=== PATIENT | male | born 1950 | race Caucasian/White ===

== ENCOUNTER 2024-12-15 14:15 | Inpatient (IN) | payer BC, MEDICARE ==
[~2024-12-15] VITALS: Ht 170.2 cm; Wt 75.7 kg
[2024-12-15] MEDS ORDERED: PANTOPRAZOLE 40 MG VIAL ONE (15:55)
[2024-12-15] MEDS ORDERED: ONDANSETRON HCL/PF 4 MG/2 ML VIAL ONE (15:55)
[2024-12-15] MEDS ORDERED: MORPHINE SULFATE INJ 4 MG/ML DISP.SYRIN ONE (15:55)
[2024-12-15] MEDS: MORPHINE SULFATE INJ 2 MG/ML DISP.SYRIN IV ONE (16:00)
[2024-12-15] MEDS: ONDANSETRON HCL/PF 4 MG/2 ML VIAL IVP ONE (16:00)
[2024-12-15] MEDS: PANTOPRAZOLE 40 MG VIAL IV ONE (16:00)
[2024-12-15] MEDS: IV NS 0.9% 1,000 ML BAG IV ONE (16:00)
[2024-12-15 16:03] LABS: PLATELET COUNT (AUTO) 281 K/uL (150-450); RED BLOOD CELL COUNT(AUTO) 5.25 MIL/uL (4.5-6.0); RED CELL DISTRIBUTION WIDTH 13.2 % (11.5-15.0); WHITE BLOOD COUNT (AUTO) 9.1 K/uL (4.3-11.0)
[2024-12-15 16:11] LABS: CALCIUM, SERUM 9.9 mg/dL (8.5-10.1); CREATININE 0.7 mg/dL (0.6-1.3); SODIUM SERUM 139 mmol/L (136-145); UREA NITROGEN, BLOOD 17 mg/dL (7-18)
[2024-12-15 16:15] LABS: INR 0.95 (0.91-1.10)
[2024-12-15 16:16] LABS: ASPARTATE AMINOTRANSFERASE 20 U/L (15-37); TOTAL PROTEIN, SERUM 7.9 g/dL (6.4-8.2)
[2024-12-15] MEDS ORDERED: IOHEXOL-300 100 ML VIAL IV ONE (16:56)
[2024-12-15] MEDS ORDERED: IV NS 0.9% 250 ML IV ONE (16:56)
[2024-12-15 17:13] LABS: APPEARANCE,URINE CLOUDY (CLEAR); BLOOD, URINE Negative Ery/uL (NEGATIVE); LEUKOCYTE ESTERASE ,URINE Negative (NEGATIVE); NITRITE, URINE NEGATIVE (NEGATIVE); UGLUCOSE Negative (NEGATIVE)
[2024-12-15 17:14] LABS: ADD URINE CULTURE NO; HYALINE CASTS, URINE Rare /LPF (None Seen); SQUAMOUS EPITHELIAL CELL,UR Rare /HPF (None Seen); URINE AMORPHOUS PHOSPHATES Moderate /HPF (None Seen)
[2024-12-15] MEDS ORDERED: HYDROMORPHONE 1 MG/1 ML DISP.SYRIN ONE (18:49)
[2024-12-15] MEDS: HYDROMORPHONE 1 MG/1 ML DISP.SYRIN IV ONE (19:00)
[2024-12-15] MEDS ORDERED: ACETAMINOPHEN 650 MG/SUPP.RECT RC PRN (20:30)
[2024-12-15] MEDS ORDERED: HYDROMORPHONE 1 MG/1 ML DISP.SYRIN IV PRN (20:30)
[2024-12-15 21:00] VITALS: BP 180/78; TEMP 97.7; O2SAT 99
[2024-12-15] MEDS: ONDANSETRON HCL/PF 4 MG/2 ML VIAL IVP PRN (21:10)
[2024-12-15] MEDS: IV NS 0.9% 1,000 ML IV PRN (21:15)
[2024-12-15 22:21] LABS: PLATELET COUNT (AUTO) 256 K/uL (150-450); RED BLOOD CELL COUNT(AUTO) 4.73 MIL/uL (4.5-6.0); RED CELL DISTRIBUTION WIDTH 12.9 % (11.5-15.0); WHITE BLOOD COUNT (AUTO) 10.6 K/uL (4.3-11.0)
[2024-12-15] MEDS: hydrALAZINE HCL IV 20 MG VIAL IV PRN (22:45)
[2024-12-15] MEDS ORDERED: PROCHLORPERAZINE EDISYLATE 10 MG/2 ML VIAL ONE (23:40)
[2024-12-15] MEDS: PROCHLORPERAZINE EDISYLATE 10 MG/2 ML VIAL IVP PRN (23:43)
[2024-12-16] VITALS: BP 150/74
[2024-12-16] MEDS: HYDROMORPHONE 1 MG/1 ML DISP.SYRIN IV PRN (00:43)
[2024-12-16 06:54] LABS: PLATELET COUNT (AUTO) 244 K/uL (150-450); RED BLOOD CELL COUNT(AUTO) 4.63 MIL/uL (4.5-6.0); RED CELL DISTRIBUTION WIDTH 12.9 % (11.5-15.0); WHITE BLOOD COUNT (AUTO) 13.1 K/uL (4.3-11.0)
[2024-12-16 07:20] LABS: CALCIUM, SERUM 8.9 mg/dL (8.5-10.1); CREATININE 0.9 mg/dL (0.6-1.3); PHOSPHORUS 4.4 mg/dL (2.5-4.9); SODIUM SERUM 141.0 mmol/L (136-145); UREA NITROGEN, BLOOD 14.0 mg/dL (7-18)
[2024-12-16 08:00] VITALS: BP 149/73; TEMP 98; O2SAT 97
[2024-12-16] MEDS ORDERED: TADA5TAB2 PO (08:24)
[2024-12-16] MEDS ORDERED: OMEP20TA20 PO (08:24)
[2024-12-16] MEDS ORDERED: CINSULIN PO (08:24)
[2024-12-16] MEDS ORDERED: SILO8CAP6 PO (08:24)
[2024-12-16] MEDS ORDERED: UBID200C18 PO (08:24)
[2024-12-16] MEDS ORDERED: FINA5TAB11 PO (08:24)
[2024-12-16] MEDS ORDERED: [UNRECOGNIZED DRUG - OTHER] PO (08:24)
[2024-12-16] MEDS ORDERED: OMEG-165 PO (08:24)
[2024-12-16] MEDS ORDERED: [UNRECOGNIZED DRUG - OTHER] PO (08:24)
[2024-12-16] MEDS ORDERED: BIOT5000 PO (08:24)
[2024-12-16] MEDS ORDERED: ALEN70TA3 PO (08:24)
[2024-12-16] MEDS ORDERED: TURM500C9 PO (08:24)
[2024-12-16] MEDS ORDERED: ZINC50TA65 PO (08:24)
[2024-12-16] MEDS ORDERED: CHOL100043 PO (08:24)
[2024-12-16] MEDS ORDERED: VIT1CAPS9 PO (08:24)
[2024-12-16] MEDS ORDERED: PITA2TAB PO (08:24)
[2024-12-16] MEDS ORDERED: OLME20TA13 PO (08:24)
[2024-12-16] MEDS: BRIMONIDINE TARTRATE OPHT SOLN 5 ML BOTTLE EACHEYE SCH (09:18)
[2024-12-16] MEDS: PANTOPRAZOLE 40 MG VIAL IV SCH (09:18)
[2024-12-16] MEDS ORDERED: DIATR MEGLU/DIATRIZOATE SODIUM 120 ML BOTTLE (GASTROGRAPHIN) ONE (09:19)
[2024-12-16 10:05] VITALS: BP 163/72; TEMP 98.1; O2SAT 98
[2024-12-16] MEDS: POTASSIUM CL. PREMIX PERIPHER. 50 ML IV SCH (10:13)
[2024-12-16] MEDS: METOCLOPRAMIDE HCL 10 MG/2 ML VIAL IV ONE (11:44)
[2024-12-16] MEDS ORDERED: SIMETHICONE 80 MG TAB.CHEW PO PRN (12:30)
[2024-12-16] MEDS: Potassium Chloride 20 MEQ in IV D5/0.45 NACL 1,000 ML IV SCH (12:40)
[2024-12-16] MEDS: LORAZEPAM INJ 2 MG/ML VIAL IM ONE (13:23)
[2024-12-16 16:00] VITALS: BP 149/66; TEMP 99.5; O2SAT 98
[2024-12-16 20:00] VITALS: BP 181/76; TEMP 98.1; O2SAT 96
[2024-12-16 23:00] VITALS: BP 155/75; O2SAT 96
[2024-12-17 06:01] LABS: PLATELET COUNT (AUTO) 228 K/uL (150-450); RED BLOOD CELL COUNT(AUTO) 4.33 MIL/uL (4.5-6.0); RED CELL DISTRIBUTION WIDTH 13.2 % (11.5-15.0); WHITE BLOOD COUNT (AUTO) 14.2 K/uL (4.3-11.0)
[2024-12-17 06:06] LABS: CALCIUM, SERUM 8.4 mg/dL (8.5-10.1); CREATININE 0.8 mg/dL (0.6-1.3); SODIUM SERUM 145.0 mmol/L (136-145); UREA NITROGEN, BLOOD 21.0 mg/dL (7-18)
[2024-12-17 06:10] LABS: PHOSPHORUS 3.0 mg/dL (2.5-4.9)
[2024-12-17 06:19] VITALS: BP 151/76; TEMP 98.5; O2SAT 96
[2024-12-17 08:00] VITALS: BP 169/87; TEMP 98.2; O2SAT 95
[2024-12-17] MEDS ORDERED: SENN8.6T19 PO (14:27)
[2024-12-17] MEDS ORDERED: POLY17PO4 PO (14:27)
[2024-12-17 16:00] VITALS: BP 124/59; TEMP 98.6; O2SAT 95
== END 2024-12-17 19:03 | disposition home or self-care (01) | DRG 390 ==
LOC: ER 14:23 → TELE 20:27 → MED 23:20
PROVIDERS: ADMIT Registered Nurse Psychiatric/Mental Health; ATTEND Nurse Practitioner Family
DX: K56.609 Unspecified intestinal obstruction, unspecified as to partial versus complete obstruction (principal); K40.90 Unilateral inguinal hernia, without obstruction or gangrene, not specified as recurrent; I25.10 Atherosclerotic heart disease of native coronary artery without angina pectoris; H40.9 Unspecified glaucoma; I10 Essential (primary) hypertension; N40.0 Benign prostatic hyperplasia without lower urinary tract symptoms; E78.5 Hyperlipidemia, unspecified; Z90.49 Acquired absence of other specified parts of digestive tract; I70.0 Atherosclerosis of aorta; K56.7 Ileus, unspecified
CPT/HCPCS: 36415; 71045-TC; 74018; 74250-TC; 80048-TC; 80076-TC; 81001; 83605-TC; 83690-TC; 83735-TC; 84100-TC; 84484-TC; 85025-TC; 85730-TC; 86850-TC; A4223; G0378; J0360; J0780; J1171; J2060; J2270; J2405; J2470; J2765; J3480; J3490; J7030; J7050; Q9963; Q9967